=== PATIENT | female | born 1950 | race African-American/Black ===

== ENCOUNTER 2022-11-11 14:21 | Outpatient (CLI) | payer MEDICARE, BC, SELFPAY ==
[2022-11-11 19:13] LABS: Alanine Aminotransferase 61 U/L (6-35); Albumin Level 3.7 g/dL (3.5-5.1); Alkaline Phosphatase 146 U/L (38-126); Anion Gap 5 mmol/L (8-16); Aspartate Amino Transferase 67 U/L (14-36); Bilirubin,Total 0.9 mg/dL (0.2-1.3); Blood Urea Nitrogen 10 mg/dL (7-17); Carbon Dioxide 32 mmol/L (22-30); Chloride 97 mmol/L (98-107); Cholesterol 168 mg/dL (0-200); Estimated Glomerular Filt Rate > 60; Glucose 138 mg/dL (65-110); HDL Direct 37 mg/dL; Potassium 4.4 mmol/L (3.4-5.0); Sodium 134 mmol/L (137-145); Triglycerides 144 mg/dL (<150)
[2022-11-11 19:25] LABS: LDL Cholesterol Direct 78 mg/dL
[2022-11-11 19:28] LABS: Hemoglobin A1C 7.1 % (<5.7)
[2022-11-11 19:50] LABS: Basophils Percent Auto 0.3 % (0.2-1.2); Eosinophils Absolute Auto 0.2 K/mm3 (0-0.3); Eosinophils Percent Auto 3.6 % (0-4.4); Hematocrit 38.5 % (37.0-47.0); Hemoglobin 12.1 g/dL (12.0-15.0); Immature Granulocyte Absolute 0.09 K/mm3 (0.00-0.031); Immature Granulocyte Percent A 1.5 % (0-0.5); Lymphocytes Percent Auto 13.6 % (18.3-44.2); Mean Corpuscular HGB Conc 31.4 g/dl (32-36); Mean Corpuscular Hemoglobin 28.9 pg (26-34); Mean Corpuscular Volume 92.1 fl (80-100); Mean Platelet Volume 10.8 fl (7.4-10.4); Monocytes Absolute Auto 0.5 K/mm3 (0.1-0.6); Monocytes Percent Auto 8.2 % (2.6-8.5); Neutrophils Absolute Auto 4.3 K/mm3 (1.3-6.7); Neutrophils Percent Auto 72.8 % (45.5-73.1); Platelet Count Result 312 k/mm3 (150-375); Red Blood Count 4.18 M/mm3 (4.2-5.4); Red Cell Distribution Width 12.1 % (11.5-14.5); White Blood Count 5.9 K/mm3 (4.5-10.0)
== END 2022-11-11 14:22 | disposition home or self-care (01) ==
LOC: ANHGOSHLAB 14:23
PROVIDERS: PCP Family Medicine; Visit Provider Family Medicine
DX: R53.83 Other fatigue (principal); E11.9 Type 2 diabetes mellitus without complications; E78.5 Hyperlipidemia, unspecified; Z13.228 Encounter for screening for other metabolic disorders
CPT/HCPCS: 36415; 80053; 80061; 83036; 85025

== ENCOUNTER → 2022-11-11 14:35 | Outpatient (CLI) | payer MEDICARE, BC, SELFPAY ==
--- NOTE | ~2022-11-11 | XR_ITS ---
EXAMINATION: XR abdomen/kub 1V DATE: 11/11/2022 14:51 INDICATION: 2 weeks of constipation TECHNIQUE: A supine view of the abdomen on 2 radiographs was obtained. COMPARISON: None. FINDINGS: Small amount of gas and stool scattered throughout the colon. No dilated loops of gas-filled bowel to suggest obstruction. Cholecystectomy clips in right upper quadrant. Small bilateral pleural effusion s with bibasilar atelectasis. Borderline heart size accounting for AP technique. IMPRESSION: 1. No dilated loops of bowel to suggest obstruction. 2. Small bilateral pleural effusions with bibasilar atelectasis. Reviewed, dictated and finalized at location A.
--- NOTE | ~2022-11-11 | XR_ITS ---
EXAMINATION: XR chest 2V DATE: 11/11/2022 14:51 INDICATION: Shortness of breath TECHNIQUE: PA and lateral views of the chest were obtained. COMPARISON: Chest CT dated 09/07/2018 FINDINGS: Opacities at the bilateral lower lung zones with blunting at the costophrenic angles and posterior hackett lci consistent with small bilateral pleural effusions and associated bibasilar atelectasis. Additiona l linear discoid atelectasis at the lateral left midlung zone. No pulmonary edema or pneumothorax. Alan rderline heart size accounting for AP technique. Cholecystectomy clips in right upper quadrant. Moder ate thoracic spondylosis with chronic mild anterior wedging at T9 and T10. IMPRESSION: 1. Mild atelectasis at the left mid and bilateral lower lung zones with small bilateral pleural effus ions. Reviewed, dictated and finalized at location A. IMPRESSION: 1. Mild atelectasis at the left mid and bilateral lower lung zones with small b ilateral pleural effusions.
== END ==
PROVIDERS: PCP Family Medicine; Visit Provider Family Medicine
DX: K59.00 Constipation, unspecified (principal); J39.8 Other specified diseases of upper respiratory tract; J90 Pleural effusion, not elsewhere classified; R91.8 Other nonspecific abnormal finding of lung field
CPT/HCPCS: 71046; 74018

== ENCOUNTER 2023-03-16 13:49 | Outpatient (CLI) | payer MEDICARE, BC, SELFPAY ==
[2023-03-16 20:11] LABS: Alanine Aminotransferase 17 U/L (6-35); Albumin Level 4.2 g/dL (3.5-5.1); Alkaline Phosphatase 132 U/L (38-126); Anion Gap 7 mmol/L (8-16); Aspartate Amino Transferase 31 U/L (14-36); Bilirubin,Total 0.6 mg/dL (0.2-1.3); Blood Urea Nitrogen 13 mg/dL (7-17); Carbon Dioxide 27 mmol/L (22-30); Chloride 102 mmol/L (98-107); Estimated Glomerular Filt Rate > 60; Glucose 162 mg/dL (65-110); Potassium 3.8 mmol/L (3.4-5.0); Sodium 136 mmol/L (137-145)
[2023-03-16 21:17] LABS: Hemoglobin A1C 6.5 % (<5.7)
== END 2023-03-16 13:50 | disposition home or self-care (01) ==
LOC: ANHGOSHLAB 13:51
PROVIDERS: PCP Family Medicine; Visit Provider Nurse Practitioner Family
DX: E11.9 Type 2 diabetes mellitus without complications (principal); E78.5 Hyperlipidemia, unspecified; Z72.89 Other problems related to lifestyle
CPT/HCPCS: 36415; 80053; 83036